=== PATIENT | male | born 1965 | race Caucasian/White ===

== ENCOUNTER 2021-01-01 10:23 | Outpatient (CLI) | payer BC, SELFPAY ==
--- NOTE | ~2021-01-01 | XR_ITS ---
. EXAMINATION: XR abdomen/kub 1V DATE: 01/01/2021 10:39 INDICATION: Kidney stone. Abdominal pain. TECHNIQUE: A supine view of the abdomen on 2 radiographs was obtained. COMPARISON: Abdomen radiograph 10/21/2017 FINDINGS: There are no dilated loops of bowel. There is a 13 mm stone in right kidney. The kidneys ar e obscured by bowel. IMPRESSION: 1. 13 mm stone in right kidney. Reviewed, dictated and finalized at location A.
--- NOTE | ~2021-01-01 | CT_ITS ---
EXAMINATION: CT abdomen pelvis wo con EXAM DATE: 01/01/2021 10:47 INDICATION: Kidney stone. TECHNIQUE: Spiral CT of the abdomen and pelvis was performed without contrast. Axial, coronal and sag ittal images were reviewed. The dose-length product (DLP) for this examination was 208.50 mGy-cm. T he exposure was tailored according to patient size (auto mA exposure control), and iterative reconstr uction (ASIR) was used as additional dose reduction technique. Correlation is made to KUB same date. FINDINGS: There is large stone in the lower pole right kidney, measuring up to 1.2 cm in size. This i s nonobstructing. There is thickened right renal pelvis urothelium could be some chronic inflammation . No ureteral stones or hydronephrosis. No left nephrolithiasis. The prostate is unremarkable. The bladder is unremarkable. The liver, spleen, adrenal glands and pancreas are unremarkable. Gallbladd er is unremarkable. No biliary obstruction. There is no retroperitoneal or pelvic lymphadenopathy. The appendix is normal. The stomach and small bowel are unremarkable. There is expected amount of c olonic stool. No free intraperitoneal gas. The heart is normal in size. There are no pericardial or pleural effusions. The lung bases are unremarkable. There are no osteoblastic or osteolytic les ions identified. IMPRESSION: Large nonobstructing right inferior calyceal stone. Right renal pelvic urothelial inflamm ation. Correlate with urinalysis for possible upper urinary tract infection. Reviewed, dictated and finalized at location A. IMPRESSION: Large nonobstructing right inferior calyceal stone. Right renal pel jaja urothelial inflammation. Correlate with urinalysis for possible upper urina ry tract infection.
== END 2021-01-01 10:24 | disposition home or self-care (01) ==
LOC: ANHIMG 10:29
PROVIDERS: Visit Provider Urology
DX: N20.0 Calculus of kidney (principal)
CPT/HCPCS: 74018; 74176

== ENCOUNTER 2021-01-16 07:56 | Outpatient (CLI) | payer BC, SELFPAY ==
[2021-01-16 08:31] LABS: INR 0.9; Prothrombin Time 12.9 Seconds (11.1-14.7)
[2021-01-16 08:32] LABS: Partial Thromboplastin Time 30.2 SECONDS (22.3-36.8)
== END 2021-01-16 07:57 | disposition home or self-care (01) ==
LOC: ANHSURGERY 07:59
PROVIDERS: Visit Provider Urology
DX: Z01.812 Encounter for preprocedural laboratory examination (principal); N20.0 Calculus of kidney
CPT/HCPCS: 36415; 85610; 85730; 87086

== ENCOUNTER → 2021-01-21 02:39 | Outpatient (CLI) | payer BC, SELFPAY ==
[2021-01-21 23:31] LABS: SARS-CoV-2 RNA PCR Negative
== END ==
PROVIDERS: Visit Provider Urology
DX: Z01.812 Encounter for preprocedural laboratory examination (principal); Z20.822 Contact with and (suspected) exposure to COVID-19
CPT/HCPCS: C9803; U0003; U0005

== ENCOUNTER 2021-01-24 02:22 | Day surgery (SDC) | payer BC, SELFPAY ==
[2021-01-14 14:25] VITALS: BMI 25.8
[2021-01-24] VITALS (7 sets, daily range): BP systolic 107–147; BP diastolic 64–98; PULSE 45–57; RESP 14–19; TEMP 36.1–36.2; O2SAT 99–100
--- NOTE | ~2021-01-24 | XR_ITS ---
EXAMINATION: XR abdomen/kub 1V EXAM DATE: 01/24/2021 06:08 INDICATION: 3 right-sided lithotripsy. TECHNIQUE: Frontal projection(s) of the abdomen for interpretation. Comparison is made to prior exami nation from 01/01/2021. FINDINGS: Dense right inferior calyceal stone measuring about 1 cm unchanged. Moderate amount of [place] stool and gas. No small bowel obstruction. 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 There is no organomegaly. IMPRESSION: Large, dense right nephrolithiasis. Reviewed, dictated and finalized at location A.
--- NOTE | 2021-01-24 06:49 | P.PNAN_ITS ---
Anes - Initial Pre Proc Eval Procedure: Operation Date: 01/24/21 07:30 Proposed Procedures p Right Renal Extracorporeal Shock Wave Lithotripsy - Bianka David MD s Possible Cystoscopy, Possible Right Retrograde Pyelogram, Possible Right Ureteral Stent Placement - Biakna David MD Date/Time: 01/24/21 06:49 Surgeon: Bianka David MD Pre Op Diagnosis: right renal stone Patient Data Age: 55 Gender: M Height: 5 ft 9 in Weight: 79.7 kg Last Vital Signs Temp 36.1 C L 01/24/21 06:19 Pulse 57 L 01/24/21 06:19 Resp 16 01/24/21 06:19 BP 107/64 01/24/21 06:19 Pulse Ox 100 01/24/21 06:19 Allergies Allergy/AdvReac Type Severity Reaction Status Date / Time No Known Allergies Allergy Unverified 01/14/21 14:24 Home Medications Medication Instructions Recorded Confirmed Type No Home Medications 01/14/21 01/14/21 History Patient hx anesthesia problems: none Family hx anesthesia problems: none [facility] Social History Social History Smoking status: Never smoker Alcohol intake: current Alcohol use details: 2/MONTH Substance use: never Substance use type: does not use Living arrangements: with family Spiritual care concerns: No Anes - Eval Final PreProcedure Day of Procedure 01/24/21 06:49 Patient weight: normal Heart: regular rate and rhythm Lungs: clear to auscultation Airway: Mallampati scale class II Neurological: alert and oriented Last oral intake: >/= 8 hours ASA classification: I Emergent: no Anesthetic plan: proceed Anesthesia type and monitoring: general LMA and standard monitoring Informed Consent: The patient's anesthetic plan and its attendant risks and benefits were discussed with the patient/family/POA. Questions were solicited and answers provided to the satisfaction of the patient/family/POA.
[2021-01-24] MEDS: LACTATED RINGERS 1,000 ML 30 ML IV CONT ×2 (06:53→08:21)
--- NOTE | 2021-01-24 07:19 | WPDHPUPDATE1 ---
History and Physical Update Update Date/Time: 01/24/21 07:19 History and Physical has been reviewed, including an updated exam of the patient. There are NO changes in the patient's condition. Risks, benefits, and alternatives have been discussed and questions answered. Patient agrees to proceed with procedure.
--- NOTE | 2021-01-24 07:19 | WPDURCON ---
Assessment and Plan Assessment and plan (1) Right renal stone: Code(s): N20.0 - Calculus of kidney Status: Acute Assessment and Plan: 13mm right lower pole stone -I discussed options with the patient options of observation, ureteroscopy, ESWL with and without stenting and percutaneous nephrolithotomy discussed. The patient has elected to proceed with a right ESWL today. He understands that given the large stone burden there is a possibility of [place]str[place], and I have given him the option of ureteral stent insertion however he has elected not to have a stent placed today. Patient understands risks of ESWL including but not limited to infection, bleeding, pain, injury to surrounding structures, likely need for additional operations given the size of the stone. The patient agrees to proceed Urology Consult Note HPI Date Seen: 01/24/21 Requesting Physician: Bianka David MD Primary Care Provider: FAMILY PRACTICE DOCTOR PHYSICIAN Consult Narrative Narrative: Leon Caldwell is a 55 year old male with Right renal stone PMFSH Past Medical History Medical History (Updated 01/24/21 @ 07:25 by Bianka David MD) Right renal stone Social History Social History Smoking status: Never smoker Alcohol intake: current Alcohol use details: 2/MONTH Substance use: never Substance use type: does not use Living arrangements: with family Spiritual care concerns: No Meds Home Medications and Allergies Home Medications Medication Instructions Recorded Confirmed Type No Home Medications 01/14/21 01/24/21 History Allergies Allergy/AdvReac Type Severity Reaction Status Date / Time No Known Allergies Allergy Unverified 01/24/21 07:22 Vital Signs Vital Signs - 24 hr 01/24/21 06:19 Temperature 36.1 C L Pulse Rate 57 L Respiratory Rate 16 Blood Pressure 107/64 Pulse Oximetry 100 Exam Narrative: Exam Narrative: Patient is awake alert oriented no acute distress. Spleen is unlabored abdomen soft nontender nondistended Results Imaging Attestation: I personally reviewed and interpreted this imaging study as follows: My impression: EXAMINATION: CT abdomen pelvis wo con EXAM DATE: 01/01/2021 10:47 INDICATION: Kidney stone. TECHNIQUE: Spiral CT of the abdomen and pelvis was performed without contrast. Axial, coronal and sagittal images were reviewed. The dose-length product (DLP) for this examination was 208.50 mGy-cm. The exposure was tailored according to patient size (auto mA exposure control), and iterative reconstruction (ASIR) was used as additional dose reduction technique. Correlation is made to KUB same date. FINDINGS: There is large stone in the lower pole right kidney, measuring up to 1.2 cm in size. This is nonobstructing. There is thickened right renal pelvis urothelium could be some chronic inflammation. No ureteral stones or hydronephrosis. No left nephrolithiasis. The prostate is unremarkable. The bladder is unremarkable. The liver, spleen, adrenal glands and pancreas are unremarkable. Gallbladder is unremarkable. No biliary obstruction. There is no retroperitoneal or pelvic lymphadenopathy. The appendix is normal. The stomach and small bowel are unremarkable. There is expected amount of colonic stool. No free intraperitoneal gas. The heart is normal in size. There are no pericardial or pleural effusions. The lung bases are unremarkable. There are no osteoblastic or osteolytic lesions identified. IMPRESSION: Large nonobstructing right inferior calyceal stone. Right renal pelvic urothelial inflammation. Correlate with urinalysis for possible upper urinary tract infection. Reviewed, dictated and finalized at location A. Dictated By: Lucas Monge MD 01/01/21 1053 Signed By: <Radha
[2021-01-24] MEDS: ceFAZolin 2 GM/D5W 50 ML 2 GM/50 ML BAG IVPB (07:29)
--- NOTE | 2021-01-24 08:23 | W.PM.PROC2 ---
Procedure Note - Detailed Date of Procedure 01/24/21 Pre-op Diagnosis right renal stone Post-op Diagnosis same Procedure Performed Right renal ESWL Surgeon Bianka David MD Anesthesia general Description of Procedure Informed consents obtained. Patient taken the operating. We identified the 13mm stone in the lower pole. Using the Dornier lithotripsy device, a total of 2500 shocks were delivered to the stone with a power ranging from 1 to 4. There appeared to be good fragmentation of the stone. The patient tolerated the procedure well he was awakened taken recovery room stable condition Drains No Packing No Pathology none sent Complications No immediate complications Condition stable Disposition PACU
[2021-01-24] MEDS: oxyCODONE HCL (*CRX) 5 MG TAB IR PO (09:15)
== END 2021-01-24 09:35 | disposition home or self-care (01) ==
PROVIDERS: Visit Provider Urology
PROC: (CPT 50590; principal; 2021-01-24 07:30)
DX: N20.0 Calculus of kidney (principal)
CPT/HCPCS: 50590; 74018; A9270; J0690; J1100; J2405; J2704; J7030; J7120

== ENCOUNTER 2021-02-12 14:52 | Outpatient (CLI) | payer BC, SELFPAY ==
--- NOTE | ~2021-02-12 | XR_ITS ---
EXAMINATION: XR abdomen/kub 1V EXAM DATE: 02/12/2021 15:10 INDICATION: Kidney stone follow-up. TECHNIQUE: Frontal projection(s) of the abdomen for interpretation. Comparison is made to prior exami nation from 01/24/2021. FINDINGS: There is stool overlying both renal contours. Small cluster of densities more likely stool contents than stone fragments. Nonobstructive bowel gas pattern. There are mild bony degenerative darren nges. Accounting for differences in technique, there is no significant interval change. IMPRESSION: Stool obscuring renal contours, can't exclude right calyceal stone fragments. Reviewed, dictated and finalized at location A.
== END 2021-02-12 14:53 | disposition home or self-care (01) ==
LOC: ANHIMG 14:58
PROVIDERS: Visit Provider Urology
DX: N20.0 Calculus of kidney (principal)
CPT/HCPCS: 74018